=== PATIENT | male | born 1945 | race Caucasian/White ===

== ENCOUNTER 2022-03-06 17:56 | Emergency (ER) | payer MEDICARE, OTHER, SELFPAY ==
[2022-03-06 17:55] VITALS: BP 135/69; PULSE 69; RESP 18; TEMP 37.1; O2SAT 96; BMI 30.2
--- NOTE | 2022-03-06 18:05 | ECG_ITS ---
APPROVED REPORT Exam: Resting ECG HR:93 bpm ECG Measurements Heart Rate 93 AXES [place] 140 P 52 QRSd 88 QRS -6 QT 355 T 35 QTc 406 Conclusion SINUS RHYTHM NONSPECIFIC T-WAVE ABNORMALITY BORDERLINE ECG UNCONFIRMED REPORT Electronically signed by : Mac Araya MD 03/08/2022 17:43:49
--- NOTE | 2022-03-06 18:06 | [facility].EDGENADL ---
ED Disposition Clinical Impression: Gastroenteritis, Near syncope Disposition: Home, Self-Care Condition on Discharge: Good Instructions: Diarrhea, DI for Vomiting -- Adult Additional Instructions: follow up PCP as needed, return here for worsening condition Prescriptions: Ondansetron [Zofran 4mg ODT] 4 mg PO TIDP PRN #15 tab PRN Reason: Nausea And Vomiting Transmission Status: Received by [facility] #[id number] Referrals: Provider,Referral, [Primary Care Provider] - - Critical Care Critical Care Time: No Attestation: On 03/06/22, the high probability of a clinically significant, sudden or life threatening deterioration of the following system(s) required my full and direct attention, intervention and personal management. The time I documented below is in addition to time spent performing reported procedures but includes the following listed in this critical care notation. Medical Decision Making - Medical Records Medical records reviewed: Yes: I reviewed the patient's medical records. - Hector Inquiry Pt receiving controlled substance: No Vital Signs: 03/06/22 17:55 03/06/22 18:30 03/06/22 19:00 Temperature 98.7 F Temperature Source Oral Pulse Rate 69 68 Pulse Rate [Right Brachial] 69 Respiratory Rate 18 18 18 Blood Pressure 118/63 138/81 Blood Pressure [Right Arm] 135/69 Blood Pressure Mean 79 100 Blood Pressure Mean [Right Arm] 91 Blood Pressure Source [Right Arm] Automatic Cuff Blood Pressure Position [Right Arm] Sitting 02 Sat by Pulse Oximetry 96 98 98 Oxygen Delivery Method Room Air - Lab Data Lab Results 03/06/22 18:10: WBC 9.6, RBC 4.15 L, Hgb 13.2 L, Hct 39.4 L, MCV 95.0 H, MCH 31.7 H, MCHC 33.4, RDW 13.7, Plt Count 227, MPV 8.2, Neut % (Auto) 89.3 H, Lymph % (Auto) 2.8 L, [place] % (Auto) 5.3, Eos % (Auto) 2.5, Baso % (Auto) 0.2, Neut # (Auto) 8.6 H, Lymph # (Auto) 0.3 L, [place] # (Auto) 0.5, Eos # (Auto) 0.2, Baso # (Auto) 0.0 03/06/22 18:10: Sodium 140, Potassium 3.6, Chloride 106, Carbon Dioxide 26, Anion Gap 11.6, BUN 19, Creatinine 0.90, Estimated Creat Clear 77, Estimated GFR 82, Est GFR ( Amer) 99, Glucose 161 H, Calcium 8.7, Total Bilirubin 0.7, AST 23, ALT 21, Alkaline Phosphatase 100, Troponin I < 0.01, Total Protein 6.6, Albumin 4.2, Globulin 2.4, Albumin/Globulin Ratio 1.8 Result diagrams: 03/06/22 18:10 03/06/22 18:10 Orders (Tests/Meds): ED MEDICATIONS Generic Name Dose Route Start Last Admin Trade Name Freq PRN Reason Stop Dose Admin Sodium Chloride 1,000 mls @ 999 mls/hr 03/06/22 18:30 03/06/22 18:22 Sod Chlor 0.9% 1000ml Bag IV 03/06/22 19:30 999 mls/hr .[id number] JAIME Administration Discontinued Medications Generic Name Dose Route Start Last Admin Trade Name Freq PRN Reason Stop Dose Admin Ondansetron HCl 8 mg 03/06/22 18:05 03/06/22 18:22 Ondansetron 4mg/2ml Vial IV 03/06/22 18:06 8 mg ONCE ONE Administration ORDERS Category Date Time Status Complete Blood Count Auto Diff Stat Lab 03/06/22 18:10 Results ECG Request by /Nse Stat Y 03/06/22 18:05 Ordered - ECG Data Tracing #1 I reviewed this ECG and interpreted as documented below: ekg by me nsr, qrs narrow, no st elev Medical Decision Narrative: reeval, vss, appears well, feels better, ok with plan to f/u prn General Adult HPI - General Chief complaint: Weakness Stated complaint: vomiting weakness Time Seen by Provider: 03/06/22 18:00 Mode of Arrival: EMS Limitations: No Limitations Description of Symptoms (Recalled from ER Triage Doc. by RN): Patient reports he was walking into the [employer] tree to use the bathroom, got weak, tripped and fell. Patient denies losing conciousness or hitting his head. Paient reports he had a bowel movement on himself when he fell. Patient reports he has been vomiting and diarrhea earlier today. - History of Present Illness HPI narrative: n/v/d today mult times watery no blood, ne
[2022-03-06 18:24] LABS: Basophils % 0.2 % (0.1-2.0); Eosinophils # 0.2 K/mm3 (0.0-0.4); Eosinophils % 2.5 % (0.1-12.0); Hematocrit 39.4 % (42.0-52.0); Hemoglobin 13.2 g/dL (14.1-18.0); Lymphocytes # 0.3 K/mm3 (0.7-4.5); Lymphocytes % 2.8 % (10-50); Mean Corpuscular HGB Conc 33.4 g/dL (31.8-35.4); Mean Corpuscular Hemoglobin 31.7 pg (27.0-31.2); Mean Platelet Volume 8.2 fl (7.4-10.4); Monocytes # 0.5 K/mm3 (0.1-1.0); Monocytes % 5.3 % (1.7-9.3); Neutrophils # 8.6 K/mm3 (1.8-7.8); Neutrophils % 89.3 % (37.0-80.0); Platelet Count 227 K/mm3 (142-424); Red Blood Count 4.15 M/mm3 (4.60-6.20); Red Cell Distribution Width 13.7 % (11.5-17.5); White Blood Count 9.6 K/mm3 (4.8-10.8)
[2022-03-06 18:30] VITALS: BP 118/63; PULSE 69; RESP 18; O2SAT 98
[2022-03-06 18:30] LABS: MANUAL DIFFERENTIAL MANUAL DIFFERENTIAL (MANUAL DIFF)
[2022-03-06 18:37] LABS: Alanine Aminotransferase 21 U/L (12-78); Albumin Level 4.2 g/dl (3.5-5.0); Albumin/Globulin Ratio 1.8 (1.1-1.8); Alkaline Phosphatase 100 U/L (38-126); Anion Gap 11.6 mEq/L (5-15); Aspartate Amino Transferase 23 U/L (17-59); Bilirubin,Total 0.7 mg/dl (0.2-1.3); Blood Urea Nitrogen 19 mg/dl (9-20); Calcium 8.7 mg/dl (8.4-10.2); Carbon Dioxide 26 mmol/L (22.0-30.0); Chloride 106 mmol/L (98-107); Creatinine Clearance Estimated 77 mL/min (50-200); Estimated Glomerular Filt Rate 82 ml/min (>60); GFR (African American) 99 ML/MIN (>60); Globulin 2.4 g/dL (1.3-3.2); Glucose 161 mg/dl (74-100); Potassium 3.6 mmoL/L (3.5-5.1); Sodium 140 mmol/L (136-145); Total Protein,Serum 6.6 g/dl (6.3-8.2)
[2022-03-06 18:54] LABS: Troponin I < 0.01 ng/ml (0.00-0.034)
[2022-03-06 19:00] VITALS: BP 138/81; PULSE 68; RESP 18; O2SAT 98
[2022-03-06 19:37] LABS: Lymphocytes % 12 % (10-50); Monocytes % 2 % (2-9); Neutrophils % 86 % (42-76); Total Cells Counted 100
[2022-03-06 19:38] LABS: Hypochromasia 1+; Platelet Estimate Normal
[2022-03-06 19:50] VITALS: BP 138/81; PULSE 95; RESP 16; TEMP 37.1; O2SAT 99
== END 2022-03-06 19:55 | disposition home or self-care (01) ==
PROVIDERS: Emergency Provider Emergency Medicine
DX: R55 Syncope and collapse (principal); K52.9 Noninfective gastroenteritis and colitis, unspecified
CPT/HCPCS: 80053; 84484; 85007; 85025; 93005; 96360; 96365; 96375; J2405